=== PATIENT | female | born 1985 | race Two or more races ===

== ENCOUNTER 2024-12-14 07:40 | Outpatient (RCR) | payer MEDICAID, SELFPAY ==
--- NOTE | 2024-12-18 01:31 | CTCCONSULT_ITS ---
Patient: TOM BEARD : 1985 MR#: [id number] Page 3 of 3 CONSULTATION NOTE DATE OF CONSULTATION: 12/14/2024 NAME: TOM BEARD ACCOUNT: [id number] : 1985 AGE: 39 REFERRING PHYSICIAN: Kitty Lake MD PRIMARY PHYSICIAN: REASON FOR VISIT: Establishing care for GIST tumor. Patient is on Gleevec and tolerating well ONCOLOGY HISTORY: DIAGNOSIS: Metastatic GIST tumor DATE OF DIAGNOSIS: March 14, 2024 STAGE/TNM: Metastatic TREATMENT HISTORY: Care?Plan Start?Date Cycle Day Intent HISTORY OF PRESENT ILLNESS: 39-year-old female is here to establish care for GIST tumor. February 2024 patient had lump under her umbilicus which was tender to touch. Lost 5 to 7 pounds of weight. Seen in emergency room in [place] and CT scan showed 8 x 10.7 x 8.3 cm necrotic mass in the inferior left hepatic lobe consistent with GI stromal tumor or retroperitoneal sarcoma with resulting right hydronephrosis also noted multiple nodules in the liver. Patient was transferred to [facility]. Patient was found to be severely anemic with ferritin of 4 and treated with IV Ferrlecit. Hepatitis and HIV was negative. Biopsy was done on March 17, 2024 which showed metastatic GI stromal tumor spindle cell types low grade G1 mitotic rate less than 5 x 5 mm. Patient had EGD and ERCP done on March 16, 2024. There was a mass in the duodenum. It is listed from the ampulla and the duodenum and pathology came back as GI stromal tumor PET CT scan was done at [facility] on March 25, 2024 showed a large tumor in the mid upper abdomen abutting the liver right kidney anterior abdominal wall greater vessels evidence of multiple liver mets. And hydronephrosis of right kidney. Patient's LDH was elevated at 337 serum protein electrophoresis showed no paraprotein anemia. Patient was started on 400 mg Gleevec daily. Patient saw radiation but there was no role for radiation therapy. Patient was sent for Caris biomarker and KIT biomarker were positive. Patient will be candidate for sunitinib and second line regorafenib after imatinib and sunitinib. Ripretinib could be utilized for refractory of imatinib is imatinib and Regorafenib. PD-L1 was positive 2+ at 5%. Echocardiogram in March 2024 showed delayed ejection fraction of 60%. Patient was seen at sarcoma center at [place] by Dr. Eduard Russell who recommended continuing Gleevec. Patient was started on Lasix for peripheral edema. July 07, [address] scan which showed no acute fracture or malalignment also the mass in the epigastric mass was decreased metastatic l esion in the liver was found to be reduced in size and mass was noted. The retroperitoneum and head of pancreas. Patient had a PET scan on August 25 which showed findings compatible with significant response to therapy with near complete resolution of epigastric mass decrease in the distal stomach mass and hepatic lesions completely resolved. Patient was diagnosed on August 11, 2024 having DVT of left upper extremity and blood clot in the left basilic vein OTHER MEDICAL HISTORY/CONDITIONS: GIST-? Peripheral?neuropathy Left carpal tunnel surgery x3 - last 3-4 yrs ago C-sction x4 - Last 22 yrs ago Kendall tubal ligation - 22 yrs ago FAMILY HISTORY: Children:?Granddtr-?brain?-?dx?age?2 Cancer History:?Mat Aunt - breast - dx age 40-50; Mat Aunt - unknown - dx 58 SOCIAL HISTORY: Occupational?History:?Unemployed Education?Level:?Completed 11th grade Marital?Status:? 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 Excedrin Migraine - 250-250-65 mg 1 tab As directed 2. gabapentin - 300 mg 1 Capsule Twice a Day 3. imatinib - 400 mg 1 tab Daily 4. Suboxone - 8-2 mg 1.5 Strip Twice a Day Medications Last Reconciled by Jacqueline Turcios RN on 12/14/2024 ALLERGIES: No Known Drug Allergies REVIEW OF SYSTEMS: A complete 14-point review of systems was performed and is negative except as noted in interval history. PHYSICAL EXAMINATION: VITAL SIGNS: Height?61?inches Weight?124?lbs PAIN: 0 - No pain ECOG Performance Status: 1 - Symptomatic; ambulatory; restricted in strenuous activity GENERAL APPEARANCE: Appears well, in no apparent distress, appropriately interactive. HEENT: Normocephalic, no temporal wasting, normal conjunctiva, no scleral icterus, normal hearing, lips without lesions, neck normal range of motion. CARDIOVASCULAR: Not assessed. PULMONARY: Normal respiratory effort, no respiratory distress or use of accessory muscles, speaking in full sentences, no tachypnea. EXTREMITIES: No pedal edema or cyanosis. SKIN: Normal skin appearance. NEUROLOGIC: Alert and oriented x4. PSHYCHIATRIC: Appropriate affect, mood normal, behavior normal, intact thought and speech. LABORATORY DATA: I have personally reviewed and interpreted each of Ms. Dominique relevant lab tests, abnormal findings are below: Date ASSESSMENT/PLAN: GIST tumor KIT mutation present On Gleevec 400 mg Last PET scan I reviewed from the notes at [facility] and showed great response Will continue therapy for now Will order labs as well as scan to establish baseline here CBC CMP PET CT scan RETURN TO CLINIC: 4 weeks BILLING AND COMPLIANCE: I reviewed external records from providers outside my specialty as summarized above. I spent a total of 50 minutes on this patient?s care on the day of their visit excluding time spent related to any billed procedures. This time includes time spent with the patient as well as time spent documenting in the medical record, reviewing patients records and tests, obtaining history, placing orders, communicating with other healthcare professionals, counseling the patient, family or caregiver, and/or care coordination for the diagnoses above. Electronically Signed by: Greg Escalera MD T: 1:29 AM CC: PCP: Referring: Kitty Lake This document was completed utilizing speech recognition software. Grammatical errors, random word insertions, pronoun errors, and incomplete sentences are an occasional consequence of this system due to software limitations, ambient noise, and hardware issues. Any formal questions or concerns about the content, text or information contained within the body of this dictation should be directly addressed to the provider for clarification.
== END 2025-01-08 23:59 | disposition home or self-care (01) ==
LOC: SCTC 07:40
PROVIDERS: PCP Nurse Practitioner; Referring Provider Nurse Practitioner; Visit Provider Internal Medicine Hematology & Oncology
DX: C49.A3 Gastrointestinal stromal tumor of small intestine (principal); C78.7 Secondary malignant neoplasm of liver and intrahepatic bile duct
CPT/HCPCS: 99212; G0463

== ENCOUNTER → 2025-01-18 | Outpatient (CLI) | payer MEDICAID, SELFPAY ==
--- NOTE | 2025-01-18 | XR_ITS ---
Examination: CT chest with intravenous contrast CT abdomen with intravenous contrast CT pelvis with intravenous contrast CT chest without intravenous contrast CT abdomen without intravenous contrast CT pelvis without intravenous contrast 2-D coronal and sagittal reconstructions Time of exam: January 18, 2025 1535 hrs. Indications: GIST tumor diagnosis one year ago, staging, post nephrostomy tube removal 2 months ago CTDI: vol (mGy) : 12.19 DLP: (mGycm): 826 Technique: Multiple axial images of the chest, abdomen and pelvis with intravenous contrast, 3.0 mm slice thickness. Images obtained post intravenous injection Isovue 370 60 cc. 2-D sagittal and coronal reconstructions. Low dose protocols were performed. One or more of the following dose reduction techniques were used; automated exposure control, adjustment of the mA and/or KV according to patient size, use of iterative reconstruction technique. Findings: No thoracic aortic aneurysmal dilatation No pulmonary artery filling defects on this non-CTA study No paratracheal tracheobronchial or bronchopulmonary adenopathy No pneumonia, pulmonary edema, pleural disease or pulmonary nodules. Multiple liver lesions including anterior liver junction right and left lobes 31 mm upper posterior right lobe the liver 27 mm 16 mm posterior mid right lobe of the liver 29 mm Gastric soft tissue mass at the level of the antrum and duodenum, 9.8 x 6.8 x 8.7 cm This mass compresses the inferior vena cava 12 mm periaortic lymph node No hydronephrosis No bowel obstruction Mild free fluid in the pelvis Retroverted uterus Urinary bladder intact Moderate osteopenia Impression: No mediastinal lymphadenopathy No pneumonia, pulmonary edema, pleural disease or pulmonary nodules Soft tissue tumor mass at the level of the gastric antrum and duodenum, 9.8 x 6.8 x 8.7 cm, compressing the inferior vena cava Multiple hepatic metastases 12 mm left lateral periaortic lymph node No bowel obstruction No current hydronephrosis
== END | disposition home or self-care (01) ==
PROVIDERS: Referring Provider Internal Medicine Hematology & Oncology; Visit Provider Internal Medicine Hematology & Oncology
DX: R22.2 Localized swelling, mass and lump, trunk (principal); C78.7 Secondary malignant neoplasm of liver and intrahepatic bile duct; C49.A0 Gastrointestinal stromal tumor, unspecified site
CPT/HCPCS: 71270; 74178; A4649; Q9967

== ENCOUNTER 2025-02-14 14:45 | Outpatient (RCR) | payer MEDICAID, SELFPAY ==
--- NOTE | 2025-02-18 20:35 | CTCFLWUP_ITS ---
Patient: TOM BEARD : 1985 Page 4 of 5 FOLLOW UP NOTE DATE OF SERVICE: 02/14/2025 NAME: TOM BEARD ACCOUNT: [id number] : 1985 AGE: 40 INTERVAL HISTORY: Subjective: Chief Complaint Follow-up for stomach cancer and multiple liver lesions, fatigue, weight loss, side pain History of Present Illness Tom is a patient with a history of stomach cancer and multiple liver lesions, presenting for follow-up and discussion of recent imaging results. She reports ongoing fatigue, lack of energy for heavy work, and pain on her side. The patient's stomach cancer, which measured 10 centimeters last year, now measures 9.8 centimeters, showing minimal growth. Multiple liver lesions are present, with the largest in the right lobe measuring 27 millimeters, reduced from 10.7 centimeters previously. Tom experiences persistent fatigue despite recent iron infusions. She reports being always tired and having no energy for heavy work, which impacts her daily functioning. The patient also mentions pain on her side, which she inquired about during the visit. Tom has been undergoing treatment with Gleevec, though adherence and response are not explicitly discussed. She reports ongoing weight loss, which is affecting her ability to eat larger meals. The patient expresses a preference for [facility] when discussing options for a second opinion and potential surgical intervention. Medical History - Stomach cancer with a large mass (10 cm) - Multiple liver lesions - Right hydronephrosis due to mass effect Medications and Supplements - Gleevec - Multivitamin - PediaSure - EnSure - Protein shakes Social History - Diet: Small, frequent meals every 1-2 hours recommended due to stomach mass - Nutrition: Advised to take multivitamin, PediaSure, EnSure, and protein shakes every 2-3 hours Review of Systems General: Positive for fatigue, weight loss, and decreased energy. Gastrointestinal: Positive for difficulty eating large meals. Musculoskeletal: Positive for pain on the side. Objective: Laboratory, Imaging, and Diagnostic Test Results - CT scan (most recent): - Liver: - Large mass in the liver - Multiple liver lesions - Right lobe: 27 mm, 16 mm, and 29 mm lesions - Left hepatic lobe: Necrotic mass - Stomach: - Large mass, 9.8 cm (previously 10.7 cm) - Peritoneal retrolymphadenopathy - Obstructive right hydronephrosis inferior to left hepatic lobe - Previous CT scan: - Stomach mass: 10.7 cm - Liver mass: 10.7 cm ONCOLOGY HISTORY: DIAGNOSIS: Metastatic GIST tumor DATE OF DIAGNOSIS: March 14, 2024 STAGE/TNM: Metastatic TREATMENT HISTORY: Care?Plan Start?Date Cycle Day Intent HISTORY OF PRESENT ILLNESS: 40-year-old female is here to establish care for GIST tumor. February 2024 patient had lump under her umbilicus which was tender to touch. Lost 5 to 7 pounds of weight. Seen in emergency room in [place] and CT scan showed 8 x 10.7 x 8.3 cm necrotic mass in the inferior left hepatic lobe consistent with GI stromal tumor or retroperitoneal sarcoma with resulting right hydronephrosis also noted multiple nodules in the liver. Patient was transferred to [facility]. Patient was found to be severely anemic with ferritin of 4 and treated with IV Ferrlecit. Hepatitis and HIV was negative. Biopsy was done on March 17, 2024 which showed metastatic GI stromal tumor spindle cell types low grade G1 mitotic rate less than 5 x 5 mm. Patient had EGD and ERCP done on March 16, 2024. There was a mass in the duodenum. It is listed from the ampulla and the duodenum and pathology came back as GI stromal tumor PET CT scan was done at [facility] on March 25, 2024 showed a large tumor in the mid upper abdomen abutting the liver right kidney anterior abdominal wall greater vessels evidence of multiple liver mets. And hydronephrosis of right kidney. Patient's LDH was elevated at 337 serum protein electrophoresis showed no paraprotein anemia. Patient was started on 400 mg Gleevec daily. Patient saw radiation but there was no role for radiation therapy. Patient was sent for Caris biomarker and KIT biomarker were positive. Patient will be candidate for sunitinib and second line regorafenib after imatinib and sunitinib. Ripretinib could be utilized for refractory of imatinib is imatinib and Regorafenib. PD-L1 was positive 2+ at 5%. Echocardiogram in March 2024 showed delayed ejection fraction of 60%. Patient was seen at sarcoma center at [facility] by Dr. Eduard Russell who recommended continuing Gleevec. Patient was started on Lasix for peripheral edema. July 07, [address] scan which showed no acute fracture or malalignment also the mass in the epigastric mass was decreased metastatic l esion in the liver was found to be reduced in size and mass was noted. The retroperitoneum and head of pancreas. Patient had a PET scan on August 25 which showed findings compatible with significant response to therapy with near complete resolution of epigastric mass decrease in the distal stomach mass and hepatic lesions completely resolved. Patient was diagnosed on August 11, 2024 having DVT of left upper extremity and blood clot in the left basilic vein OTHER MEDICAL HISTORY/CONDITIONS: GIST- Peripheral?neuropathy Left carpal tunnel surgery x3 - last 3-4 yrs ago C-sction x4 - Last 22 yrs ago [facility] tubal ligation - 22 yrs ago FAMILY HISTORY: Children:?Granddtr-?brain?-?dx?age?4 Cancer History:?Mat Aunt - breast - dx age 40-50; Mat Aunt - unknown - dx 58 SOCIAL HISTORY: Occupational?History:?Unemployed Education?Level:?Completed 11th grade Marital?Status:? 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 Excedrin Migraine - 250-250-65 mg 1 tab As directed 2. gabapentin - 300 mg 1 Capsule Twice a Day 3. imatinib - 400 mg 1 tab Daily 4. Suboxone - 8-2 mg 1.5 Strip Twice a Day Medications Last Reconciled by Betzy Goldsmith MD on 02/14/2025 ALLERGIES: No Known Drug Allergies REVIEW OF SYSTEMS: A complete 14-point review of systems was performed and is negative except as noted in interval history. PHYSICAL EXAMINATION: VITAL SIGNS: Temperature?98.8, B/P?130/74, Oxygen?Saturation?99% Weight?130?lbs PAIN: 0 - No pain ECOG Performance Status: 0 - Asymptomatic and fully active GENERAL APPEARANCE: Appears well, in no apparent distress, appropriately interactive. HEENT: Normocephalic, no temporal wasting, normal conjunctiva, no scleral icterus, normal hearing, lips without lesions, neck normal range of motion. CARDIOVASCULAR: Not assessed. PULMONARY: Normal respiratory effort, no respiratory distress or use of accessory muscles, speaking in full sentences, no tachypnea. EXTREMITIES: No pedal edema or cyanosis. SKIN: Normal skin appearance. NEUROLOGIC: Alert and oriented x4. PSHYCHIATRIC: Appropriate affect, mood normal, behavior normal, intact thought and speech. LABORATORY DATA: I have personally reviewed and interpreted each of the patient?s relevant lab tests, abnormal findings are below: Date ASSESSMENT/PLAN: GIST tumor KIT mutation present On Gleevec 400 mg Last PET scan I reviewed from the notes at [facility] and showed great response Assessment and Plan: Tom is a patient with advanced gastric cancer and multiple liver metastases, presenting with fatigue, weight loss, and side pain. Gastric cancer with liver metastases Assessment: Patient has a large gastric mass measuring 9.8 cm (previously 10.7 cm) with multiple liver metastases. The largest liver lesion in the right lobe measures 27 mm (previously 10.7 cm). Other liver lesions measure 16 mm and [address] scan reveals peritoneal retrolymphadenopathy and a necrotic mass in the left hepatic lobe causing obstructive right hydronephrosis. The patient is currently on Gleevec therapy, which appears to have reduced the size of some lesions. However, given the extensive disease, a second opinion from a higher- level center ([facility] or [facility]) is warranted to evaluate surgical options for tumor debulking or resection. Plan: - Continue Gleevec therapy (current dosage not specified) - Refer patient to [facility] for second opinion and potential surgical evaluation - Recommend small, frequent meals every 1-2 hours to accommodate gastric mass - Advise patient to avoid drinking water with meals - Recommend multivitamins, PediaSure, Ensure, and protein shakes every 2-3 hours - Monitor for weight loss and nutritional status Fatigue Assessment: Patient reports persistent fatigue despite recent iron infusions. This is likely multifactorial, related to advanced cancer, potential nutritional deficiencies due to gastric involvement, and possibly anemia (given recent iron infusions). Plan: - Continue current management with iron infusions - Encourage small, frequent meals and nutritional supplements as outlined above - Monitor for improvement in energy levels with current interventions Side pain Assessment: Patient reports side pain, which may be related to the large gastric mass pressing on surrounding structures. This symptom could also be exacerbated by weight loss, leading to less cushioning around organs. Plan: - Monitor pain levels - Reassess pain management needs at follow-up visits RETURN TO CLINIC: BILLING AND COMPLIANCE: I reviewed external records from providers outside my specialty as summarized above. I spent a total of 50 minutes on this patient?s care on the day of their visit excluding time spent related to any billed procedures. This time includes time spent with the patient as well as time spent documenting in the medical record, reviewing patients records and tests, obtaining history, placing orders, communicating with other healthcare professionals, counseling the patient, family or caregiver, and/or care coordination for the diagnoses above. Electronically Signed by: Greg Escalera MD T: 8:33 PM CC: PCP: Referring: Greg Escalera This document was completed utilizing speech recognition software. Grammatical errors, random word insertions, pronoun errors, and incomplete sentences are an occasional consequence of this system due to software limitations, ambient noise, and hardware issues. Any formal questions or concerns about the content, text or information contained within the body of this dictation should be directly addressed to the provider for clarification.
[2025-04-04 15:31] VITALS: BMI 24.5
== END 2025-03-10 23:59 | disposition home or self-care (01) ==
LOC: SCTC 14:45
PROVIDERS: PCP Physician Assistant; Referring Provider Internal Medicine Hematology & Oncology; Visit Provider Internal Medicine Hematology & Oncology
DX: C49.A0 Gastrointestinal stromal tumor, unspecified site (principal); C78.7 Secondary malignant neoplasm of liver and intrahepatic bile duct; N13.30 Unspecified hydronephrosis; R53.0 Neoplastic (malignant) related fatigue; G89.3 Neoplasm related pain (acute) (chronic)
CPT/HCPCS: 99212; G0463